=== PATIENT | male | born 1975 | race Caucasian/White ===

== ENCOUNTER 2020-09-02 14:23 | Emergency (ER) | payer OTHER ==
[~2020-09-02] VITALS: Ht 188 cm; Wt 123.4 kg
[2020-09-02 14:31] VITALS: Ht 188 cm; Wt 123.4 kg
[2020-09-02] MEDS ORDERED: MOT400 PO (15:39)
[2020-09-02 15:53] VITALS: BP 133/72
== END 2020-09-02 15:53 | disposition home or self-care (01) ==
LOC: ED 14:23
DX: R07.81 Pleurodynia (principal)